=== PATIENT | male | born 1980 | race Caucasian/White ===

== ENCOUNTER 2017-09-02 17:21 | Emergency (ER) | payer OTHER ==
[2017-09-02 17:27] VITALS: BP 128/95; PULSE 95; RESP 16; TEMP 98.2; O2SAT 94
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
== END 2017-09-02 18:20 | disposition home or self-care (01) ==
DX: S43.402A Unspecified sprain of left shoulder joint, initial encounter (principal); Y04.0XXA Assault by unarmed brawl or fight, initial encounter; Y92.149 Unspecified place in prison as the place of occurrence of the external cause